=== PATIENT | female | born 1965 | race Caucasian/White ===

== ENCOUNTER 2019-04-29 13:00 | Outpatient (RCR) | payer BC, SELFPAY | END 2019-04-29 13:05 | disposition home or self-care (01) | LOC: OT 13:00 | PROVIDERS: PCP Family Medicine; Visit Provider Family Medicine | DX: M25.511 Pain in right shoulder (principal) | CPT/HCPCS: 97014; 97110; 97165; G0283 ==

== ENCOUNTER → 2019-08-25 08:40 | Outpatient (CLI) | payer BC, SELFPAY ==
--- NOTE | 2019-08-25 08:47 | XR_ITS ---
PROCEDURE: XR WRIST RT MIN 3V CLINICAL INDICATION: right wrist sprain/ out of splint Posttraumatic pain and swelling and bruising COMPARISON: XR WRIST RT MIN 3V from 08/17/2019 FINDINGS: Moderate osteoarthritic changes are present at the 1st metacarpal-carpal joint with mild lateral subluxation of the 1st metacarpal which is chronic with prominent osteophytes at this region. No obvious fracture or dislocation. IMPRESSION: Osteoarthritic change, no acute fracture apparent Dictated by: Mumtaz Kraft MD 08/25/2019 09:04 Electronically signed by Mumtaz Kraft MD in [place] 08/25/2019 09:04
== END ==
PROVIDERS: PCP Family Medicine; Visit Provider Surgery
DX: S63.501A Unspecified sprain of right wrist, initial encounter (principal)
CPT/HCPCS: 73110

== ENCOUNTER 2019-12-18 23:15 | Emergency (ER) | payer BC, SELFPAY ==
[2019-12-18 23:16] VITALS: BP 159/86; PULSE 81; RESP 18; TEMP 36.8; O2SAT 97; BMI 29.9
--- NOTE | 2019-12-18 23:19 | XR_ITS ---
PROCEDURE: XR CHEST 2V Patient Age:54Y CLINICAL HISTORY: chest pain Dyspnea COMPARISON: No exams were available for comparison FINDINGS: PA and lateral chest with no previous for comparison The lungs appear well expanded and clear with nothing definitely acute. Heart, josue and mediastinal structures satisfactory. No pneumothorax nor pleural effusion. Chest wall in T-spine unremarkable. A small 3.2 mm nodular density at the left upper lobe at the anterior 2nd interspace is noted fairly dense for size and most likely a granuloma but comparison the prior films be helpful to further support such if available. If patient is a smoker would at least suggest a follow-up CXR [address] or preferably [address] CT follow-up IMPRESSION: No acute cardiopulmonary findings. Small 3.3 mm nodular density towards the left apex-fairly dense for size thus most likely a partially calcified granuloma. The any prior films here would be helpful to confirm such and/or stability. (But if significant smoking history follow-up 4 months encouraged) . Dictated by: Khanh Jett MD 12/19/2019 12:48 Electronically signed by Khanh Jett MD in [place] 12/19/2019 12:48
--- NOTE | 2019-12-18 23:19 | HMH.EDGENADL ---
ED Disposition Clinical Impression: Biliary colic Disposition: Home, Self-Care Condition on Discharge: Good Instructions: Fat-Restricted Diet, DI for General Gallbladder Conditions, DI for Biliary Colic Additional Instructions: Low-fat diet. Follow-up with your primary care doctor, call Friday, I recommend that you arrange a gallbladder ultrasound. Percocet if needed for pain. Zofran if needed for nausea. Additional instructions for ABDOMINAL PAIN: Return immediately if worsening abdominal pain, vomiting, shortness of breath, fever, vomiting of blood or abdominal distention. Additional instructions for CONTROLLED SUBSTANCES: You have been prescribed a medication that is a controlled substance. Controlled substances include pain medications known as opiates and sedative nerve medications known as benzodiazepines. Tramadol, fioricet, and gabapentin are also controlled substances. Some common opiates include: Codeine (such as Tylenol #3) Hydrocodone (Vicodin, Lortab, Lorcet, Suches) Oxycodone (Percocet, Percodan, Oxycodone, Oxy IR) Some common benzodiazepines include: Diazepam (Valium) Lorazepam (Ativan) Alprazolam (Xanax) Clonazepam (Klonopin) Oxazepam (Serax) All of these controlled substances are highly addictive and frequently abused. Misuse can and frequently does lead to addiction as well as overdose and . Medication should be stored in a locked cabinet or other secure storage unit. Do not store the medication in a motor vehicle. Short term supplies, 3 days or less, are prescribed because of the highly addictive nature of the medication. Any of the controlled substance medication NOT taken should be disposed of properly and NOT SAVED. The recommended method of disposing of unused medications is: Place the medicines in a sealable plastic bag. If the medicine is a solid, crush it or add water to dissolve it. Add something undesirable (cat litter, coffee grounds, etc.) Dispose of sealed bag in household trash Do not flush or pour unused medicines down a sink or drain. Controlled substances should not be shared, given away or sold. Because of the addictive nature and frequent abuse, these medications are sometimes stolen. These medications should be kept in a safe place where they cannot be stolen. Do not keep them in your car or purse. Lost or stolen prescriptions for controlled substances WILL NOT BE REFILLED in this emergency department, regardless of whether a police report was filed. Prescriptions: Oxycodone HCl/Acetaminophen [Percocet 5/325mg tablet] 1 tab PO Q6HP PRN #10 tab PRN Reason: Moderate To Severe Pain Transmission Status: Received by [id number] Ondansetron [Zofran 4mg ODT] 4 mg PO TIDP PRN #10 tab.rapdis PRN Reason: Nausea And Vomiting Transmission Status: Received by [id number] Referrals: Natalie George [Primary Care Provider] - - Critical Care Critical Care Time: No Attestation: On , the high probability of a clinically significant, sudden or life threatening deterioration of the following system(s) required my full and direct attention, intervention and personal management. The time I documented below is in addition to time spent performing reported procedures but includes the following listed in this critical care notation. Medical Decision Making - Medical Records Medical records reviewed: Yes: I reviewed the patient's medical records. - Jarrod Inquiry Pt receiving controlled substance: Yes Jarrod was queried for this patient: Yes Reference #:: [id number] Risks and benefits of using a controlled substance: were discussed with pt by me Comment: 0 rxs. Vital Signs: 12/18/19 23:16 12/18/19 23:37 12/19/19 00:23 Temperature 98.2 F 98 F Temperature Source Oral Pulse Rate 78 Pulse Rate [Left] 81 83 Respiratory Rate 18 18 16 Blood Pressure 148/81 H Blood Pressure [Left Arm] 159/86 H 146/87 H Blood Pressure Mean [L
[2019-12-18 23:37] VITALS: BP 146/87; PULSE 83; RESP 18; O2SAT 95
[2019-12-18 23:40] LABS: Basophils # 0.1 K/mm3 (0-0.2); Basophils % 0.5 % (0.1-2.0); Eosinophils # 0.1 K/mm3 (0.0-0.4); Eosinophils % 1.5 % (0.1-12.0); Hematocrit 41.4 % (37.0-47.0); Hemoglobin 14.4 g/dL (12.2-16.2); Lymphocytes # 3.2 K/mm3 (0.7-4.5); Lymphocytes % 36.3 % (10-50); Mean Corpuscular HGB Conc 34.8 g/dL (31.8-35.4); Mean Corpuscular Hemoglobin 32.6 pg (27.0-31.2); Mean Corpuscular Volume 93.5 fl (81-99); Mean Platelet Volume 7.9 fl (7.4-10.4); Monocytes # 0.4 K/mm3 (0.1-1.0); Monocytes % 4.9 % (1.7-9.3); Neutrophils % 56.6 % (37.0-80.0); Platelet Count 298 K/mm3 (142-424); Red Blood Count 4.43 M/mm3 (4.20-5.40); Red Cell Distribution Width 12.5 % (11.5-17.5); White Blood Count 8.9 K/mm3 (4.8-10.8)
[2019-12-18 23:48] LABS: Alanine Aminotransferase 27 U/L (12-78); Albumin Level 4.3 g/dl (3.5-5.0); Alkaline Phosphatase 98 U/L (38-126); Aspartate Amino Transferase 64 U/L (14-36); Bilirubin,Direct 0.1 mg/dl (0.0-0.4); Bilirubin,Indirect 0.3 mg/dL (0.0-0.9); Bilirubin,Total 0.4 mg/dl (0.2-1.3); Bilirubin,Unconjugated 0.3 mg/dL (0.0-1.1); Total Protein,Serum 7.6 g/dl (6.3-8.2)
[2019-12-18 23:49] LABS: Amylase 127 U/L (30-110); Blood Urea Nitrogen 17 mg/dl (7-17); Calcium 9.6 mg/dl (8.4-10.2); Carbon Dioxide 29 mmol/L (22.0-30.0); Chloride 104 mmol/L (98-107); Creatinine Clearance Estimated 95 mL/min (50-200); Estimated Glomerular Filt Rate 74 ml/min (>60); GFR (African American) 90 ML/MIN (>60); Glucose 114 mg/dl (74-100); Lipase 300 U/L (23-300); Sodium 142 mmol/L (136-145)
--- NOTE | 2019-12-19 | ECG_ITS ---
APPROVED REPORT Exam: Resting ECG HR:76 bpm ECG Measurements Heart Rate 76 AXES TN 150 P 44 QRSd 86 QRS 53 QT 382 T 39 QTc 429 <Conclusion> Normal sinus rhythm Possible Left atrial enlargement Borderline ECG Electronically signed by : Carlos Tamayo, 12/19/2019 21:51:30
[2019-12-19 00:04] LABS: Troponin I < 0.01 ng/ml (0.00-0.034)
[2019-12-19 00:23] VITALS: BP 148/81; PULSE 78; RESP 16; TEMP 36.6
== END 2019-12-19 00:25 | disposition home or self-care (01) ==
PROVIDERS: Emergency Provider Emergency Medicine; PCP Family Medicine
DX: K80.50 Calculus of bile duct without cholangitis or cholecystitis without obstruction (principal); F41.8 Other specified anxiety disorders; I10 Essential (primary) hypertension
CPT/HCPCS: 71046; 80048; 80076; 82150; 83690; 84484; 85025; 93005; 93041; 96374; 96375; 99283

== ENCOUNTER → 2020-12-01 14:42 | Outpatient (CLI) | payer BC, SELFPAY | PROVIDERS: Visit Provider Physician Assistant Medical | DX: Z20.822 Contact with and (suspected) exposure to COVID-19 (principal) | CPT/HCPCS: U0003 ==

== ENCOUNTER 2024-11-29 16:50 | Outpatient (CLI) | payer MEDICARE, BC, SELFPAY ==
--- OUTSIDE RECORDS SUMMARY | 2024-11-30 09:57 | XMS_ITS | Clinical Summary ---
Author Organization [facility] Address [address] [place] [address] Care Team Providers Care Pattern Scratcher Name Role Phone Unavailable Primary Care Provider Unavailabl e Allergies No known active allergies Medications diclofenac (Voltaren) 1 % topical gel APPLY TO UPPER EXTREMITIES, 2 GM OF GEL TO AFFECTED AREA 4 TIMES DAILY. DO NOT APPLY MORE THAN 8 GM DAILY TO ANY ONE AFFECTED JOINT. 10/14/2020 Active Magnesium 200 MG tablet Take by mouth. Active rizatriptan (Maxalt) 10 MG tablet TAKE ONE TABLET AT ONSET OF HEADACHE. MAY REPEAT EVERY 2 HOURS NEEDED TO A MAXIMUM OF 3 TABLET IN 24 HOURS. 18 tablet 02/04/2021 Active FLUoxetine (PROzac) 20 MG tablet Take 1 tablet by mouth once daily 90 tablet 1 07/31/2021 Active lisinopril 20 MG tablet Take 1 tablet by mouth once daily 90 tablet 08/22/2021 Active buPROPion XL (Wellbutrin XL) 300 MG 24 hr tablet TAKE 1 TABLET BY MOUTH ONCE DAILY DIRECTED 90 tablet 02/05/2022 Active Active Problems Problem Noted Date Diagnosed Date Carpal tunnel syndrome on both sides 11/27/2020 Overview (11/27/2020): Added automatically from request for surgery Numbness in both hands 09/29/2020 Prediabetes 03/08/2020 Word finding difficulty 03/07/2020 Sciatica 03/17/2019 JAYLEN on CPAP 08/04/2017 Arthralgia of multiple joints 04/26/2016 Common migraine 02/02/2016 Cervicalgia 04/03/2015 Generalized anxiety disorder 04/03/2015 Essential hypertension 08/13/2014 Depression 08/13/2014 Family History Medical History Relation Name Comments Heart disease Brother Kidney disease Father Diabetes Mother Heart disease Mother Relation Name Status Comments Brother Father Mother Social History Tobacco Use Types Packs/Day Years Used Date Smoking Tobacco: Never Smokeless Tobacco: Never Alcohol Use Standard Drinks/Week Comments Yes 1 (1 standard drink = 0.6 oz pur e alcohol) PHQ-2 Answer Date Recorded Patient Health Questionnaire-2 Score 2 03/02/2021 Comments No Sex and Gender Information Value Date Recorded Sex Assigned at Not on file Legal Sex Female 8:48 PM EDT Gender Identity Not on file Sexual Orientation Not on file Last Filed Vital Signs Vital Sign Reading Time Taken Comments Blood Pressure 122/82 03/02/2021 1:12 PM EDT Pulse 86 03/02/2021 1:12 PM EDT Temperature 36.6 C (97.8 F) 01/31/2021 8:55 AM EDT Respiratory Rate 15 03/02/2021 1:12 PM EDT Oxygen Saturation 98% 03/02/2021 1:12 PM EDT Inhaled Oxygen Concentration - - Weight 76.3 kg (168 lb 3.4 oz) 03/02/2021 1:12 P M EDT Height 160 cm (5' 3 ) 03/02/2021 1:12 PM EDT Body Mass Index 29.8 03/02/2021 1:12 PM EDT Plan of Treatment Health Maintenance Due Date Last Done Comments [facility]-Depression Screening 1965 [facility]-/Child/Adol SDOH Screenings 1965 [facility]- SDOH Screenings 08/26/1981 [facility]-Adult SDOH Screenings 08/26/1981 [facility]-DTaP,Tdap,and Td Vaccine s (1 - Tdap) 08/26/1982 CT Colonography 08/26/2008 Colonoscopy 08/26/2008 FIT-DNA 08/26/2008 FIT 08/26/2008 FOBT 08/26/2008 Sigmoidoscopy 08/26/2008 [facility]-Colorectal Cancer Screening 08/26/2008 [facility]-Pneumococcal Vaccine: 50 + Years (1 of 1 - PCV) 08/26/2013 [facility]-Zoster Vaccines (1 of 2) 08/26/2013 [facility]-Pap Smear 03/17/2022 03/17/2019 [id number] Vaccine (2023- season) 2024 [facility]-Cervical Cancer Screening 03/17/2024 [facility]-HPV/Cotest 03/17/2024 03/17/2019 [facility]-Influenza Vaccine (#1) 2025 [facility]-RSV Vaccine: 60+ Years o r (1 - 1-dose 75+ series) 08/26/2038 [facility]-Diabetes: Hemoglobin A1C Discontinued , 06/22/2020, 03/07/2020 HPV Vaccines Aged Out No longer eligi ble based on patient's age to complete this topic [facility]-HIB Vaccines Aged Out No longer e ligible based on patient's age to complete this topic [facility]-Hepatitis A Vaccines Aged Out No longer eligible based on patient's age to complete this topic [facility]-IPV Vaccines Aged Out No longer e ligible based on patient's age to complete this topic [facility]-Rotavirus Vaccines Aged Out No lo nger eligible based on patient's age to complete this topic Procedures Procedure Name Priority Date/Time Associated Diagnosis Comments HEMOGLOBIN A1C Routine 03/02/2021 2:05 PM EDT Prediabetes CYTO DATA CONVERSION Routine 03/17/2019 12:00 AM EDT from Last 3 Months or Most Recently Relevant to Health Maintenance Results * (ABNORMAL) Hemoglobin A1c (03/02/2021 2:05 PM EDT) Hemoglobin A1c 5.7(H) <5.7 % 03/02/2021 7:30 PM EDT [facility] Blood Venous blood specimen / Unknown Venipuncture / Unknown 03/02/2021 2:05 PM EDT 03/02/2021 2:05 PM EDT Narrative [facility] - 03/02/2021 7:30 PM EDT HA1C Interpretive Data: Diagnosis of Diabetes: Diabetic > or = 6.5% Pre-diabetic 5.7 to 6.4% Non-diabetic < or = 5.6% Glycemic Targets for Type I and Type II Diabetics: Non- Adults <7.0% Adults <6.0% Children and Adolescents <7.5% Source: [place] [employer]. Standards of medical care in diabetes,2017. Diabetes Care.2017:40 (suppl 1):S1-S135. HbA1c assay performed by an ion-exchange chromatography method that is certified traceable to the DCCT. Natalie George MD LAB BLOOD ORDERABLES Final Re sult [facility] [address] [place] [address] * Cytology (03/17/2019 12:00 AM EDT) 03/17/2019 03/18/2019 10: 10 AM EDT Narrative [facility] - 03/22/2019 6:38 AM EST [facility] MR #: [id number] [facility] [place], [place] [address] 1965 (Age: 53) FW Collect Date: 03/17/2019 00:00 Receipt Date: 03/18/2019 10:10 Page 1 DEPARTMENT OF PATHOLOGY AND LABORATORY MEDICINE CYTOPATHOLOGY REPORT Email: [email or web address] ATTENDING MD/Practitioner: Jose George MD Service: [facility] Location: [facility] Reported: 03/22/2019 06:38 Collected: 03/17/2019 00:00 INTERPRETATION A. THIN PREP (CERVICAL/VAGINAL): NEGATIVE FOR INTRAEPITHELIAL LESION OR MALIGNANCY. SATISFACTORY FOR EVALUATION; TRANSFORMATION ZONE COMPONENT CANNOT BE DEFINITIVELY IDENTIFIED DUE TO THE PRESENCE OF ATROPHY OR OTHER HORMONAL CHANGES. Slide scanned and imaged by [employer] ThinPrep Imaging System with manual review of all selected lin. Electronically Signed Out By KAR Yuen(ASCP) KAR Yuen(ASCP) Cervical cytology is a screening test primarily for squamous cancers and precursors and has associated false negative and positive results. New technologies such as liquid based sampling may decrease but will not eliminate all false negative results. Regular screening and follow-up of unexplained clinical signs and symptoms are recommended to minimize false negative results. Please see the ASCCP website (www.asccp.org) for followup recommendations. If HPV testing was requested, correlation with the results is suggested (please call Microbiology at [phone] for results). CLINICAL INFORMATION: Menstrual History: Postmenopausal Date of Last Menstrual Period: {Not Provided} Other Clinical Conditions: If ASCUS and > 24 years of age, HPV/DNA testing requested. SPECIMEN DESCRIPTION: A: THIN PREP (CERVICAL/VAGINAL) THIN PREP PROCESS CELLULAR ENHANCEMENT ICD: F: A; RT IMAGE [id number] SNOMED CODES: A; [id number] In cases where a pathologist has signed out the report, the service has been rendered in part by a resident. The signing pathologist has performed and is responsible for the reported pathologic evaluation. Natalie George MD LAB PATHOLOGY ORDERABLES Vy chavez Result [facility] from Last 3 Months or Most Recently Relevant to Health Maintenance Insurance [facility] [place] [address]
--- OUTSIDE RECORDS SUMMARY | 2024-11-30 09:58 | XMS_ITS | Clinical Summary ---
Author Organization [facility] Address [address] [place] [address] Phone Care Team Providers Care Carburizer Name Role Phone Natalie George MD Primary Care Provider Social History Tobacco Use Types Packs/Day Years Used Date Smoking Tobacco: Never Assessed Comments Unknown Sex and Gender Information Value Date Recorded Sex Assigned at Not on file Legal Sex Female 2:48 PM EDT Gender Identity Not on file Sexual Orientation Not on file Plan of Treatment Health Maintenance Due Date Last Done Comments Annual Wellness Exam 08/26/1966 Hepatitis C Screening 08/26/1981 DTaP/TDaP/Td (1 - Tdap) 08/26/1982 Cologuard 08/26/2008 Colon Cancer Screening 08/26/2008 Colonoscopy 08/26/2008 FIT 08/26/2008 Sigmoidoscopy 08/26/2008 Virtual Colonography 08/26/2008 Pneumococcal Vaccine 50+ (1 of 1 - PCV) 08/26/2013 Zoster (1 of 2) 08/26/2013 COVID-19 Vaccine ( - 2023-2 5 season) 2024 Influenza Vaccine (#1) 2025 Hepatitis B Vaccine Aged Out No longe r eligible based on patient's age to complete this topic Meningococcal B Vaccine Aged Out No l onger eligible based on patient's age to complete this topic Care Teams Carburizer Relationship Specialty Start Date End Date Natalie George MD PCP - General Family Medicine 02/12/16
== END 2024-11-29 23:59 | disposition home or self-care (01) ==
LOC: LAB.DROPOF 11-30 09:55
PROVIDERS: PCP Nurse Practitioner; Visit Provider Nurse Practitioner
DX: R30.0 Dysuria (principal)
CPT/HCPCS: 87086; 87088; 87186